=== PATIENT | male | born 1985 | race Caucasian/White ===

== ENCOUNTER → 2017-10-24 | Outpatient (CLI) | payer OTHER ==
[~2017-10-24] MED LIST: AMOXICILLIN 8751 TAB PO; BACTRIM DS 8001 TAB PO; CEPHALEXIN500 M1 PO; NAPROXEN500 MG PO; NORCO 325 MG-51 TAB PO
[2017-10-24 12:36] LABS: BASO # 0.1 (0.0-0.2); BASO % 0.9 % (0.0-2.0); EOS # 0.1 (0.0-0.7); EOS % 1.7 % (0-4.0); GRAN % 60.3 % (42.2-75.2); HEMATOCRIT 48.3 % (42.0-52.0); HEMOGLOBIN 17.4 g/dl (13.5-18.0); LYMPH # 1.6 (1.2-3.4); LYMPH % 24.7 % (20.0-51.0); MEAN CELL VOLUME 90 fl (80.0-100.0); MEAN CORPUSCULAR HEMOGLOBIN 33 pg (27.0-31.0); MEAN CORPUSCULAR HGB CONC 36 g/dl (33.0-37.0); MEAN PLATELET VOLUME 10.5 fl (7.4-10.4); MONO # 0.8 (0.1-0.6); MONO % 11.9 % (1.7-9.3); PLATELET COUNT 215 K/mm3 (130-400); RED BLOOD COUNT 5.36 M/mm3 (4.20-5.60); WHITE BLOOD COUNT 6.7 K/mm3 (4.8-10.8)
[2017-10-24 12:47] LABS: ALANINE AMINOTRANSFERASE 70 U/L (21-72); ALBUMIN 4.7 gm/dL (3.5-5.0); ALKALINE PHOSPHATASE 55 U/L (50-136); ANION GAP 10 mmol/L (7-16); BILIRUBIN,TOTAL 1.3 mg/dL (0.0-1.0); BLOOD UREA NITROGEN 12 mg/dL (9-20); CALCIUM 9.6 mg/dL (8.4-10.2); CARBON DIOXIDE 25 mmol/L (22-30); CHLORIDE 104 mmol/L (98-107); CREATININE, serum 0.79 mg/dL (0.66-1.25); GLUCOSE 115 mg/dL (74-106); LIPASE 72 U/L (23-300); POTASSIUM 3.9 mmol/L (3.4-5.0); SODIUM 140 mmol/L (137-145)
[2017-10-24 12:48] LABS: AMYLASE < 30 U/L (30-110)
== END ==
LOC: COL.LAB 11:56
PROVIDERS: Physician Assistant Medical
DX: R10.9 Unspecified abdominal pain (principal)

== ENCOUNTER → 2017-10-29 | Outpatient (CLI) | payer OTHER | LOC: COL.RAD 09:31 | DX: K80.20 Calculus of gallbladder without cholecystitis without obstruction (principal); K76.0 Fatty (change of) liver, not elsewhere classified ==

== ENCOUNTER → 2017-11-14 | Outpatient (CLI) | payer OTHER | LOC: COL.RAD 11:25 | DX: K82.8 Other specified diseases of gallbladder (principal) | CPT/HCPCS: A9537 ==

== ENCOUNTER 2017-12-04 07:01 | Day surgery (SDC) | payer OTHER ==
[~2017-12-04] VITALS: Ht 193 cm; Wt 168.2 kg
[2017-12-04] VITALS (8 sets, daily range): BP systolic 113–143; BP diastolic 66–99; PULSE 78–96; TEMP 97.6–97.7
[2017-12-04] MEDS ORDERED: LEXAPRO 10MG10 MG PO ×2 (07:23→07:24)
[2017-12-04] MEDS ORDERED: PAMELOR 25MG25 MG PO (07:24)
[2017-12-04] MEDS ORDERED: BENTYL 20MG20 MG/TAB PO (07:25)
[2017-12-04] MEDS ORDERED: COLACE 100100 MG/CAP PO (10:11)
[2017-12-04] MEDS ORDERED: NORCO 325 MG-51 TAB PO (10:11)
[2017-12-04] MEDS ORDERED: MOTRIN 600600 MG/TAB PO (10:12)
== END 2017-12-04 14:10 | disposition home or self-care (01) ==
LOC: SDCO 07:01
DX: K80.10 Calculus of gallbladder with chronic cholecystitis without obstruction (principal); K58.0 Irritable bowel syndrome with diarrhea; K76.0 Fatty (change of) liver, not elsewhere classified; E66.9 Obesity, unspecified; Z68.42 Body mass index [BMI] 45.0-49.9, adult; F32.9 Major depressive disorder, single episode, unspecified
CPT/HCPCS: J0694; J1170; J1885; J2405; J2704; J3010; J7120; Q9967

== ENCOUNTER 2018-11-21 18:03 | Emergency (ER) | payer SELFPAY ==
[~2018-11-21] VITALS: Ht 193 cm; Wt 171.8 kg
[~2018-11-21 18:03] MED LIST changes: +BENTYL 20MG20 MG/TAB PO; +COLACE 100100 MG/CAP PO; +LEXAPRO 10MG10 MG PO; +MOTRIN 600600 MG/TAB PO; +PAMELOR 25MG25 MG PO
[2018-11-21 18:13] VITALS: TEMP 97.6
[2018-11-21 18:56] LABS: COLLECTION METHOD CLEAN CATCH
[2018-11-21 19:04] LABS: BASO # 0.1 (0.0-0.2); BASO % 0.7 % (0.0-2.0); EOS # 0.1 (0.0-0.7); EOS % 1.2 % (0-4.0); GRAN # 4.6 (1.4-6.5); HEMATOCRIT 46.7 % (42.0-52.0); HEMOGLOBIN 16.4 g/dl (13.5-18.0); LYMPH # 1.9 (1.2-3.4); LYMPH % 25.5 % (20.0-51.0); MEAN CELL VOLUME 91 fl (80.0-100.0); MEAN CORPUSCULAR HEMOGLOBIN 32 pg (27.0-31.0); MEAN CORPUSCULAR HGB CONC 35 g/dl (33.0-37.0); MEAN PLATELET VOLUME 10.7 fl (7.4-10.4); MONO # 0.7 (0.1-0.6); MONO % 8.9 % (1.7-9.3); PLATELET COUNT 216 K/mm3 (130-400); RED BLOOD COUNT 5.15 M/mm3 (4.20-5.60); REDCELL DISTRIBUTION WIDTH-CV 12.5 % (11.5-14.5)
[2018-11-21 19:10] LABS: MUCOUS Present /lpf; PH 5 (5-8); SQUAMOUS EPITHELIAL 0-2 /hpf; URINE APPEARANCE Hazy; URINE BACTERIA None Seen /hpf; URINE BILIRUBIN Negative (NEGATIVE); URINE BLOOD 3+ (NEGATIVE); URINE COLOR Yellow; URINE GLUCOSE Negative (NEGATIVE); URINE KETONE Negative (NEGATIVE); URINE LEUKOCYTE ESTERASE Negative (NEGATIVE); URINE NITRATE Negative (NEGATIVE); URINE PROTEIN(semi-quant) 2+ (NEGATIVE); URINE RBC >50 /hpf
[2018-11-21 19:25] LABS: ALBUMIN 4.6 gm/dL (3.5-5.0); BILIRUBIN,TOTAL 1.2 mg/dL (0.0-1.0); C-REACTIVE PROTEIN 0.7 mg/dL (0.0-0.9); CALCIUM 9.4 mg/dL (8.4-10.2); CREATININE, serum 0.89 mg/dL (0.66-1.25); POTASSIUM 3.8 mmol/L (3.4-5.0); TOTAL PROTEIN 8.1 gm/dL (6.4-8.2)
[2018-11-21 21:06] VITALS: BP 147/85; PULSE 94
== END 2018-11-21 21:06 | disposition home or self-care (01) ==
LOC: COL.ER 18:03
PROVIDERS: Physician Assistant
DX: N20.0 Calculus of kidney (principal); F41.9 Anxiety disorder, unspecified; G51.0 Bell's palsy; Z90.49 Acquired absence of other specified parts of digestive tract; Z88.8 Allergy status to other drugs, medicaments and biological substances
CPT/HCPCS: J1885; J2405; J7030